=== PATIENT | male | born 1945 | race Hispanic/Latino ===

== ENCOUNTER → 2018-11-30 | Outpatient (CLI) | payer OTHER | END | disposition home or self-care (01) | LOC: SHCH 11:06 | PROVIDERS: ATTEND Internal Medicine Cardiovascular Disease | DX: R01.1 Cardiac murmur, unspecified (principal) | CPT/HCPCS: 93306 ==

== ENCOUNTER → 2018-12-06 | Outpatient (CLI) | payer OTHER | END | disposition home or self-care (01) | LOC: SHCH 08:31 → EDUNIT# 09:00 | PROVIDERS: ATTEND Internal Medicine Cardiovascular Disease | DX: I73.9 Peripheral vascular disease, unspecified (principal) | CPT/HCPCS: 93925 ==

== ENCOUNTER → 2018-12-11 | Outpatient (CLI) | payer OTHER ==
[~2018-12-11] MED LIST: REGADENOSON 0.4 MG/5 ML PF SYG IVP SCH
== END | disposition home or self-care (01) ==
LOC: SHCH 07:57 → EDUNIT# 08:30
PROVIDERS: ATTEND Internal Medicine Cardiovascular Disease
DX: I99.8 Other disorder of circulatory system (principal); I10 Essential (primary) hypertension
CPT/HCPCS: 78452; 93017; 96374; A9500 ×2; J2785

== ENCOUNTER 2019-01-23 05:38 | Day surgery (SDC) | payer OTHER ==
[2019-01-19 12:54] LABS: BASOPHILS % (AUTO) 1.1 % (0.0-5.0); EOSINOPHILS % (AUTO) 2.7 % (0.0-8.0); HEMATOCRIT 44.6 % (42-54); LYMPHOCYTES % (AUTO) 26.4 % (21.0-51.0); MEAN CORPUSCULAR HEMOGLOBIN 30.2 pg (27.0-33.0); MEAN CORPUSCULAR HGB CONC 33.8 g/dL (32.0-36.0); MEAN CORPUSCULAR VOLUME 89.4 fL (79-99); MONOCYTES % (AUTO) 12.8 % (3.0-13.0); NUCLEATED RED BLOOD CELLS 0.1 % (0.0-0.19); PLATELET COUNT (AUTO) 194 K/uL (130-400); RED CELL DISTRIBUTION WIDTH 13.8 % (11.0-15.5); WHITE BLOOD COUNT (AUTO) 5.4 K/uL (4.8-10.8)
[2019-01-19 13:01] LABS: APPEARANCE,URINE Clear (CLEAR); BILIRUBIN,URINE Negative (NEGATIVE); COLOR,URINE Yellow (YELLOW); GLUCOSE, URINE (UA) Negative (NEGATIVE); KETONES,URINE Negative (NEGATIVE); LEUKOCYTE ESTERASE ,URINE Negative (NEGATIVE); NITRATE,URINE Negative (NEGATIVE); OCCULT BLOOD,URINE Negative (NEGATIVE); PH,URINE 5.5 (5.0-8.0); PROTEIN,URINE Negative (NEGATIVE); UROBILINOGEN,URINE 0.2 mg/dL (0.2-1.0)
[2019-01-19 13:09] LABS: CREATININE 1.1 mg/dL (0.5-1.5); POTASSIUM 3.8 mmol/L (3.5-5.1)
[2019-01-19 13:13] LABS: INR 0.96 (0.85-1.15); PARTIAL THROMBOPLASTIN TIME 27.7 SEC (26.3-35.5); PROTHROMBIN TIME 10.1 SEC (9.6-11.6)
[2019-01-19 13:23] VITALS: BP 144/73
--- NOTE | 2019-01-19 13:26 | NUR ---
PT FORGOT MEDS HE WILL CALL
--- NOTE | 2019-01-22 13:11 | NUR ---
CALLED PT TO ATTEMPT TO GET MEDICATION INFO,PT DID NOT HAVE MEDS HE WAS AT WORK. ADVISED TO BRING FOR PROCEDURE AND TO TAKE ASPIRIN USUAL AND ONLY [facility] MEDS. NOTIFIED PT OF TIME TO ARRIVE.
[~2019-01-23] VITALS: Ht 179.1 cm; Wt 85.2 kg
[2019-01-23] VITALS (10 sets, daily range): BP systolic 105–141; BP diastolic 61–72
[~2019-01-23 05:38] MED LIST changes: +AEC81 PO; +AMLO2.5T4 PO; +METO25TA6 PO; +POTA-79 PO; -REGADENOSON 0.4 MG/5 ML PF SYG IVP SCH; +SIMV80TA91 PO; +TERA10CA4 PO
[2019-01-23] MEDS ORDERED: HEPARIN SODIUM 1000UNIT/ML 10ML VIAL ONE (08:00)
[2019-01-23] MEDS ORDERED: SODIUM CHLORIDE 0.9% 1000ML 1,000 ML IV SCH ×2 (08:00→09:13)
[2019-01-23] MEDS ORDERED: SODIUM BICARB 50MEQ 50ML VIAL ONE (08:00)
[2019-01-23] MEDS ORDERED: IOHEXOL 350 MG/ML 100ML INFUS..BTL IV ONE (08:01)
[2019-01-23] MEDS ORDERED: IOHEXOL-350 50ML VIAL IV ONE (08:01)
[2019-01-23] MEDS ORDERED: NITROGLYCERIN 5 MG/ML 10 ML VIAL IV ONE (08:01)
[2019-01-23] MEDS ORDERED: LIDOCAINE HCL 2% 20ML ONE (08:01)
[2019-01-23] MEDS ORDERED: MEPERIDINE-PF 25 MG/ML SYG ONE (08:18)
[2019-01-23] MEDS ORDERED: MIDAZOLAM HCL 1 MG/ML 2ML VIAL ONE (08:19)
--- NOTE | 2019-01-23 13:15 | NUR ---
PT DISCHARGED HOME, TOLERATING FLUIDS/FOOD WELL, AMBULATING WELL, VOIDED GOOD AMOUNT PRIOR TO DISCHARGE. PT DENIES ANY EXTREME PAIN, NAUSEA, DIZZINESS. PT INSTRUCTED IN ROUTINE AND EMERGENCY CARE OF RIGHT GROIN CATH SITE. PT REMINDED NOT TO LIFT ANYTHING HEAVIER THAN 5 LBS FOR 5 DAYS. GROIN SITE REMAINS SOFT, NON-TENDER, S ANY EVIDENCE OF BLEEDING, WITH SIGNS OF GOOD PERIPHERAL CIRCULATION AND GOOD PEDAL PULSES. PT DOES NOT HAVE FAMILY AT BEDSIDE, BUT PT FULLY AWAKE AND AWARE FOR DISCHARGE INSTRUCTIONS. PT RECEIVED RIDE HOME FROM COUSIN.
== END 2019-01-23 13:15 | disposition home or self-care (01) ==
LOC: DAH 05:38
PROVIDERS: ATTEND Internal Medicine Cardiovascular Disease
DX: I25.118 Atherosclerotic heart disease of native coronary artery with other forms of angina pectoris (principal); I11.0 Hypertensive heart disease with heart failure; I50.32 Chronic diastolic (congestive) heart failure; N40.0 Benign prostatic hyperplasia without lower urinary tract symptoms; Z98.890 Other specified postprocedural states; Z79.899 Other long term (current) drug therapy; R07.9 Chest pain, unspecified; E78.5 Hyperlipidemia, unspecified
CPT/HCPCS: 36415; 71045; 80048; 81003; 85025; 85610; 85730; 93005; 93458; A4606; C1760; C1894; J1644; J2175; J2250; J3490 ×3; J7030; Q9965; Q9967 ×2; 99156; 99157